=== PATIENT | female | born 2000 | race Caucasian/White ===

== ENCOUNTER 2018-05-09 21:23 | Emergency (ER) | payer OTHER ==
[2018-05-09] MEDS ORDERED: LIDOCAINE 1% 20 ML MDV ONE (21:53)
[2018-05-09] MEDS ORDERED: HYDROCODONE/APAP 5/325 MG TAB ONE (22:48)
[2018-05-09] MEDS ORDERED: BUPIVACAINE 0.5% PF 10 ML VIAL ONE (22:48)
[2018-05-09] MEDS ORDERED: LIDOCAINE 1% W/EPI 1:100,000 MDV 50 ML VIAL ONE (22:48)
[2018-05-09] MEDS ORDERED: CLINDAMYCIN 600MG/D5W 600 MG/50 ML BAG IV ONE (23:00)
[2018-05-09] MEDS ORDERED: NA CHLORIDE 0.9% 1,000 ML ONE (23:00)
[2018-05-09 23:23] LABS: Absolute Lymphocytes (CBC) 0.8 K/uL (0.7-4.9); Absolute Monocytes 1.4 K/uL (0.1-1.3); Absolute Neutrophil 13.6 K/uL (1.8-8.0); Eosinophils % 0.1 % (0-4.4); Hematocrit 37.1 % (36.0-45.0); MCH 29.1 pg (27.0-35.0); MCV 85.5 fL (80-100); MPV 9.1 fL (7.6-11.3); Monocytes % 8.9 % (3.3-12.3); RBC Red Blood Cell Count 4.34 M/uL (3.86-4.86)
[2018-05-09 23:39] LABS: Bicarbonate 24 mEq/L (21-31); Glucose Level 93 mg/dL (65-120); Potassium 3.6 mEq/L (3.6-5.0); Sodium Level 138 mEq/L (135-145)
[2018-05-09 23:40] LABS: BUN Blood Urea Nitrogen 9 mg/dL (6-20)
--- NOTE | 2018-05-09 23:57 | ER ---
Nurse's Notes [facility] Name: Xiomy Nicole Age: 17 yrs Sex: Female : 2000 Arrival Date: 05/09/2018 Time: 21:27 Bed 18 Private MD: Diagnosis: Pilonidal cyst with abscess Presentation: 05/09 21:29 Presenting complaint: Patient states: Abscess at tailbone for 3 days. Transition of care: patient was not received from another setting of care. Onset of symptoms was May 06, 2018. Risk Assessment: Do you want to hurt yourself or someone else? Patient reports no desire to harm self or others. Care prior to arrival: None. 21:29 Method Of Arrival: Ambulatory 21:29 Acuity: BENITO 3 aj 21:47 Initial Sepsis Screen: Does the patient meet any 2 criteria? No. Patient's initial tl2 sepsis screen is negative. Does the patient have a suspected source of infection? No. Patient's initial sepsis screen is negative. Triage Assessment: 21:29 General: Appears in no apparent distress. uncomfortable, Behavior is calm, cooperative, aj appropriate for age. Pain: Complains of pain in gluteal cleft. Neuro: Level of Consciousness is awake, alert, obeys commands, Oriented to person, place, time, situation, Appropriate for age. Respiratory: Airway is patent Respiratory effort is even, unlabored, Respiratory pattern is regular, symmetrical. Derm: Skin is intact, is healthy with good turgor, Skin is pink, warm \T\ dry. normal, Abscess located on gluteal cleft. 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 - Social history:: Smoking status: Patient/guardian denies using tobacco. - Ebola Screening: : Patient negative for fever greater than or equal to 101.5 degrees Fahrenheit, and additional compatible Ebola Virus Disease symptoms Patient denies exposure to infectious person Patient denies travel to an Ebola-affected area in the 21 days before illness onset No symptoms or risks identified at this time. Screenin:51 Abuse screen: Denies threats or abuse. Nutritional screening: No deficits noted. tl2 Tuberculosis screening: No symptoms or risk factors identified. Fall Risk None identified. Assessment: 21:51 General: Appears in no apparent distress. uncomfortable, Behavior is calm, cooperative, tl2 appropriate for age. General: Pt states that she made an appt to see a surgeon but the pain got too bad and she couldn't wait. Pain: Complains of pain in gluteal cleft Pain does not radiate. Neuro: Level of Consciousness is awake, alert, obeys commands, Oriented to person, place, time, situation. Cardiovascular: Denies chest pain. Respiratory: Airway is patent Respiratory effort is even, unlabored, Respiratory pattern is regular, symmetrical. GI: No signs and/or symptoms were reported involving the gastrointestinal system. : No signs and/or symptoms were reported regarding the genitourinary system. Derm: Skin is pink, warm \T\ dry. Abscess located on gluteal cleft is nickel sized, has no drainage, is hot to touch, is raised. 22:38 Reassessment: Patient appears in no apparent distress at this time. Awaiting provider tl2 assessment. 05/10 00:06 Reassessment: Patient appears in no apparent distress at this time. Patient and/or tl2 family updated on plan of care and expected duration. Pain level reassessed. Patient is alert, oriented x 3, equal unlabored respirations, skin warm/dry/pink. Pt verbalized understanding of discharge instructions, need for follow up with Dr. Luke, wound care and prescription usage Patient states feeling better. Vital Signs: 05/09 21:29 BP 131 / 82; Pulse 115; Resp 16; Temp 97.6; Pulse Ox 99% on R/A; Weight 63.05 kg; aj Height 5 ft. 5 in. (165.10 cm); 22:38 BP 116 / 68; Pulse 101; Resp 20; Pulse Ox 98% on R/A; tl2 23:24 BP 116 / 77; Pulse 97; Resp 16; Pulse Ox 99% on R/A; mt 21:29 Body Mass Index 23.13 (63.05 kg, 165.10 cm) ED Course: 21:27 Patient arrived in ED. es 21:29 Triage completed. aj 21:29 Arm band placed on right wrist. Patient placed in waiting room, Patient notified of wait time. 21:44 Bebeto Lopez PA is PHCP. cp 21:44 Alessandro Marie MD is Attending Physician. cp 21:45 Bhumika Crespo RN is Primary Nurse. tl2 21:51 Patient has correct armband on for positive identification. Placed in gown. Bed in low tl2 position. Call light in reach. Side rails up X 1. Adult w/ patient. 22:54 Inserted saline lock: 20 gauge in left antecubital area, using aseptic technique. Blood tl2 collected. placed by HARITHA Tapia. 23:52 Isaiah Luke MD is Referral Physician. 05/10 00:06 No provider procedures requiring assistance completed. IV discontinued, intact, tl2 bleeding controlled, No redness/swelling at site. Pressure dressing applied. Administered Medications: 05/09 22:52 Drug: [place] 5 mg-325 mg 1 tabs Route: PO; tl2 23:40 Follow up: Response: No adverse reaction; Pain is decreased tl2 23:04 Drug: NS 0.9% 1000 ml Route: IV; Rate: 1 bolus; Site: left antecubital; tl2 23:49 Follow up: IV Status: Completed infusion; IV Intake: 1000ml tl2 23:04 Drug: Clindamycin 600 mg Route: IVPB; Infused Over: 30 mins; Site: left antecubital; tl2 23:49 Follow up: IV Status: Completed infusion tl2 05/10 00:06 Drug: Bactrim (160 mg-800 mg (DS) 2 tablet Route: PO; tl2 00:06 Follow up: Response: No adverse reaction; Medication administered at discharge. tl2 Intake: 05/09 23:49 IV: 1000ml; Total: 1000ml. tl2 Outcome: 23:56 Discharge ordered by . 05/10 00:06 Discharged to home ambulatory, with friend. tl2 Condition: stable Discharge instructions given to patient, friend, Instructed on discharge instructions, follow up and referral plans. medication usage, wound care, Demonstrated understanding of instructions, follow-up care, medications, wound care, Prescriptions given X 3. 00:07 Patient left the ED. tl2 Signatures: Swathi Messer RN RN aj Salyer, Edna es Page, Corey, PA PA cp Bhumika Crespo RN RN tl2 Melony Fleming mt Corrections: (The following items were deleted from the chart) 05/09 21:31 21:29 Arm band placed on right wrist. Patient placed in an exam room, [facility] 22:53 22:38 Pulse 101bpm; Resp 20bpm; Pulse Ox 98% RA; tl2 tl2
--- NOTE | 2018-05-09 23:57 | EDPHYS ---
Physician Documentation [facility] Name: Xiomy Nicole Age: 17 yrs Sex: Female : 2000 Arrival Date: 05/09/2018 Time: 21:27 Bed 18 Private MD: ED Physician Alessandro Marie HPI: 05/09 22:48 This 17 yrs old Female presents to ER via Ambulatory with complaints of Boil. cp 22:48 the patient presents with a swollen area of the gluteal cleft. Description: fluctuant, cp swollen, tense. Onset: The symptoms/episode began/occurred 3 day(s) ago. Possible cause(s): unknown. Associated signs and symptoms: Pertinent negatives: discharge, drainage, fever. 22:48 Severity of symptoms: in the emergency department the symptoms are unchanged, despite home interventions. 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 - Social history:: Smoking status: Patient/guardian denies using tobacco. - Ebola Screening: : Patient negative for fever greater than or equal to 101.5 degrees Fahrenheit, and additional compatible Ebola Virus Disease symptoms Patient denies exposure to infectious person Patient denies travel to an Ebola-affected area in the 21 days before illness onset No symptoms or risks identified at this time. ROS: 22:55 Constitutional: Negative for body aches, chills, fever, poor PO intake. cp 22:55 Eyes: Negative for injury, pain, redness, and discharge. cp 22:55 ENT: Negative for drainage from ear(s), ear pain, sore throat, difficulty swallowing, difficulty handling secretions. 22:55 Cardiovascular: Negative for chest pain, palpitations. 22:55 Respiratory: Negative for cough, shortness of breath, wheezing. 22:55 Abdomen/GI: Negative for abdominal pain, nausea, vomiting, and diarrhea, black/tarry stool, rectal bleeding. 22:55 Back: Negative for pain at rest, pain with movement. 22:55 Skin: Positive for abscess, of the gluteal cleft, Negative for rash. 22:55 All other systems are negative. Exam: 23:05 Constitutional: The patient appears in no acute distress, alert, awake, cp non-diaphoretic, well developed, well nourished, uncomfortable. 23:05 Head/Face: Normocephalic, atraumatic. cp 23:05 Eyes: Periorbital structures: appear normal, Conjunctiva: normal, no exudate, no injection, Lids and lashes: appear normal, bilaterally. 23:05 ENT: External ear(s): are unremarkable, Nose: is normal, Mouth: is normal, Posterior pharynx: is normal, airway is patent. 23:05 Neck: ROM/movement: is normal, is supple, without pain, no range of motions limitations, no nuchal rigidity. 23:05 Chest/axilla: Inspection: normal. 23:05 Cardiovascular: Rate: normal, Rhythm: regular. 23:05 Respiratory: the patient does not display signs of respiratory distress, Respirations: normal, no use of accessory muscles, no retractions, no splinting, no tachypnea, Breath sounds: are clear throughout, no decreased breath sounds, no stridor, no wheezing. 23:05 Abdomen/GI: Exam negative for discomfort, distension, guarding, Inspection: abdomen appears normal. 23:05 Back: pain, is absent, ROM is normal. 23:05 Skin: abscess, that is moderate sized, of the coccyx and gluteal cleft, with induration, with surrounding cellulitis, that is mild. 23:05 Neuro: Orientation: to person, place \T\ time. Mentation: lucid, able to follow commands, Cerebellar function: is grossly normal, Motor: moves all fours, strength is normal. Vital Signs: 21:29 BP 131 / 82; Pulse 115; Resp 16; Temp 97.6; Pulse Ox 99% on R/A; Weight 63.05 kg; aj Height 5 ft. 5 in. (165.10 cm); 22:38 BP 116 / 68; Pulse 101; Resp 20; Pulse Ox 98% on R/A; tl2 23:24 BP 116 / 77; Pulse 97; Resp 16; Pulse Ox 99% on R/A; mt 21:29 Body Mass Index 23.13 (63.05 kg, 165.10 cm) Procedures: 23:36 I \T\ D: Incision and drainage was performed for an abscess of the pilonidal cyst Prepped cp with Betadine, Anesthetized with 10 ccs of 50/50 mixture 0.5% marcaine and 1% lidocaine with epi. Incised with #11 blade. Drained large amount purulent fluid. Cultures obtained. Abscess cavity explored. Packed with iodoform gauze, Dressing: sterile 4x4 gauze, the patient tolerated the procedure well. MDM: 21:44 Patient medically screened. cp 23:00 Differential diagnosis: abscess, cellulitis, insect bite. cp 23:55 Data reviewed: vital signs, nurses notes, lab test result(s), and as a result, I will cp discharge patient. 23:55 Counseling: I had a detailed discussion with the patient and/or guardian regarding: the cp historical points, exam findings, and any diagnostic results supporting the discharge/admit diagnosis, lab results, the need for outpatient follow up, a general surgeon. Response to treatment: the patient's symptoms have markedly improved after treatment, and as a result, I will discharge patient. 05/09 22:45 Order name: CBC with Diff 05/09 23:35 Interpretation: Normal except: WBC 15.8; [place]% 86.0; LYM% 5.0; NEUT A 13.6; MNA 1.4. 05/09 22:45 Order name: BMP; Complete Time: 23:51 cp 05/09 22:45 Order name: Wound Culture 05/09 22:56 Order name: Test, Serum; Complete Time: 23:51 tl2 05/09 23:26 Order name: Manual Differential EDMS 05/09 22:45 Order name: IV; Complete Time: 22:51 cp Administered Medications: 22:52 Drug: [place] 5 mg-325 mg 1 tabs Route: PO; tl2 23:40 Follow up: Response: No adverse reaction; Pain is decreased tl2 23:04 Drug: NS 0.9% 1000 ml Route: IV; Rate: 1 bolus; Site: left antecubital; tl2 23:49 Follow up: IV Status: Completed infusion; IV Intake: 1000ml tl2 23:04 Drug: Clindamycin 600 mg Route: IVPB; Infused Over: 30 mins; Site: left antecubital; tl2 23:49 Follow up: IV Status: Completed infusion tl2 05/10 00:06 Drug: Bactrim (160 mg-800 mg (DS) 2 tablet Route: PO; tl2 00:06 Follow up: Response: No adverse reaction; Medication administered at discharge. tl2 Disposition: 05/09/18 23:56 Discharged to Home. Impression: Pilonidal cyst with abscess. - Condition is Stable. - Discharge Instructions: Incision and Drainage, Pilonidal Cyst. - Prescriptions for Clindamycin HCl 300 mg Oral Capsule - take 1 capsule by ORAL route every 6 hours for 10 days; 40 capsule. Tylenol- Codeine #3 300-30 mg Oral Tablet - take 2 tablets by ORAL route every 6 hours As needed; 20 tablet. Bactrim DS 800- 160 mg Oral Tablet - take 1 tablet by ORAL route every 12 hours for 10 days; 20 tablet. - Medication Reconciliation Form, Thank You Letter, Antibiotic Education, Prescription Opioid Use form. - Work release form (05/10/18 00:10). tl2 - Follow up: Isaiah Luke MD; When: 05/12/2018; Reason: Recheck today's complaints. - Problem is new. - Symptoms have improved. Addendum: 05/12/2018 10:22 Co-signature as Attending Physician, Alessandro Marie MD I agree with the assessment and w a plan of care. Signatures: Dispatcher [employer] Swathi Olivas RN RN aj Page, Corey, PA PA cp Knox, Taylor, RN RN 2 Alessandro Marie MD MD mn Corrections: (The following items were deleted from the chart) 05/09 23:35 23:35 Normal except: WBC 15.8; [place]% 86.0; LYM% 5.0; NEUT A 13.6. cp cp 23:49 22:45 Urine Test ordered. cp tl2 05/10 00:07 05/09 23:56 05/09/2018 23:56 Discharged to Home. Impression: Pilonidal cyst with tl2 abscess. Condition is Stable. Forms are Medication Reconciliation Form, Thank You Letter, Antibiotic Education, Prescription Opioid Use. Follow up: Isaiah Luke; When: 05/12/2018; Reason: Recheck today's complaints. Problem is new. Symptoms have improved. cp
[2018-05-10] MEDS ORDERED: SMZ./TMP. 800/160 MG TABLET ONE (00:02)
[2018-05-10 00:09] LABS: Blood Morphology Comment NOT SEEN (NOT SEEN); Platelet Estimate ADEQ
== END 2018-05-10 00:07 | disposition home or self-care (01) ==
LOC: ER 21:23
PROC: 0H98XZZ Drainage of Buttock Skin, External Approach (ICD-10-PCS; principal; 2018-05-10)
DX: L05.01 Pilonidal cyst with abscess (principal)
CPT/HCPCS: 36415; 80048; 84703; 85025; 87070; 87205; 96361; 96365; 99284; J7030

== ENCOUNTER 2018-05-14 07:18 | Day surgery (SDC) | payer OTHER ==
[2018-05-13 15:48] LABS: Absolute Lymphocytes (CBC) 1.4 K/uL (0.7-4.9); Absolute Monocytes 0.4 K/uL (0.1-1.3); Absolute Neutrophil 1.7 K/uL (1.8-8.0); Basophils % 0.7 % (0-1.3); Eosinophils % 2.9 % (0-4.4); Hematocrit 39.2 % (36.0-45.0); Lymphocytes % 39.4 % (15.3-44.8); MCH 29.1 pg (27.0-35.0); MCV 86.3 fL (80-100); MPV 9.3 fL (7.6-11.3); RBC Red Blood Cell Count 4.55 M/uL (3.86-4.86)
[2018-05-13 16:01] LABS: BUN Blood Urea Nitrogen 11 mg/dL (7-18); Bicarbonate 25 mmol/L (21-32); Glucose Level 94 mg/dL (74-106); Potassium 4.1 mmol/L (3.5-5.1); Sodium Level 139 mmol/L (136-145)
[~2018-05-14 07:18] MED LIST: BUPIVACAINE 0.5% Inj,MDV 50 mL VIAL ONE
[2018-05-14] MEDS ORDERED: Ringers Lactate 1,000 ML IV ONE (07:40)
[2018-05-14] MEDS ORDERED: PROPOFOL 200 MG/20 ML VIAL IV ONE (07:40)
[2018-05-14] MEDS ORDERED: LIDOCAINE 2% MPF 5 ML VIAL ONE (07:41)
[2018-05-14] MEDS ORDERED: FENTANYL CITR 100 MCG/2 ML ONE (07:41)
[2018-05-14] MEDS ORDERED: ROCURONIUM 50 MG/5 ML VIAL IV ONE (07:41)
[2018-05-14] MEDS ORDERED: ONDANSETRON HCL 40 MG/20 ML VIAL ONE (07:41)
[2018-05-14] MEDS ORDERED: CEFAZOLIN/SWI 1gm 1 GM/10 ML SYR ONE (07:41)
[2018-05-14] MEDS ORDERED: MIDAZOLAM HCL 2 MG/2 ML INJ ONE (07:41)
[2018-05-14 07:51] LABS: Specific Gravity 1.025 (1.005-1.030)
[2018-05-14] MEDS ORDERED: GLYCOPYRROLATE 0.2 MG/ML SYR ONE (08:43)
[2018-05-14] MEDS ORDERED: NEOSTIGMINE 1 MG/ML -5 ML SYRINGE ONE (08:44)
--- NOTE | 2018-05-14 08:50 | P.BOP ---
Preoperative diagnosis: infected pilonidal cyst Postoperative diagnosis: same Primary procedure: Wide excision of infected pilonidal cyst 7 x 5 x 3 cm Estimated blood loss: <20cc Specimen: cyst Findings: as above Anesthesia: General Complications: None Drain(s): Other Transferred to: Recovery Room Condition: Good
[2018-05-14] MEDS: MEPERIDINE HCL 25 MG/0.5 ML ONE ×2 (09:10→09:12)
[2018-05-14] MEDS ORDERED: MEPERIDINE HCL 25 MG/0.5 ML ONE ×2 (09:17→09:26)
--- NOTE | 2018-05-14 18:02 | OP ---
Date of Procedure: 05/14/2018 Surgeon: Isaiah Luke MD Preoperative Diagnosis: Infected pilonidal cyst. Postoperative Diagnosis: Infected pilonidal cyst. Procedure: Wide excision of infected complex pilonidal cyst 7 x 5 x 3 cm. Estimated Blood Loss: Less than 20 cc. Specimen: Cyst with devitalized tissue. Findings: The patient has an infected cyst with associated abscess. The cyst goes all the way down to the coccyx bone, bone is not exposed. Multiple loculations present, all removed. Indications: This is the case of a lady, who comes to us with infected pilonidal cyst, initially has incision in an ER by the ER physician, but is still having purulent discharge from the area, not imp roving, so she was booked for wide excision of infected pilonidal cyst with benefits, alternatives, a nd risks including, but are not limited to infection, bleeding, damage to adjacent structures, anesth esia complication, nonhealing wound, AL, and even . She also understands this may not relieve a ny symptoms. She might need more than one surgical intervention. She understands this and will requ ashlyn wound care. The and the family member stated they will be helping with that dressing jossie nges, and they were explained how to. Procedure In Detail: The patient was brought to the operating room, placed in supine position. Anes thesia was done without complication. The patient was placed in prone position with proper protectio n. The sacral area and buttocks were prepped and draped in usual sterile fashion. The patient has i ncision in that area. We put a probe in that area, delineated the edges of the cyst, and proceed to do wide excision of it all the way down deep at least 3 cm deep into the area near the coccyx. The a bscess was completely excised to normal tissue. The area was irrigated, hemostasis was obtained, and the area was packed with wet-to-dry dressing. The patient tolerated the procedure well. The patien t was sent to recovery in stable condition. Diagnosis: Infected pilonidal cyst. Procedure: Wide excision of infected pilonidal cyst. Disposition: Home. Activity: As tolerated. No heavy lifting. Followup: Follow up in my office in 1 week. Call for appointment at [phone]. Wet-to-dry dressing. Normal saline daily. The family were explained how to do so. Medications: Include Vicodin q.4 hours p.r.n. pain. The patient advised not to combine that with ot her codeine or opioids. MACHELLE/ARASELI Voice ID: [id number] Report ID: [id number]
== END 2018-05-14 10:25 | disposition home or self-care (01) ==
LOC: OR 07:18
PROVIDERS: ATTEND Surgery
PROC: 0JB90ZZ Excision of Buttock Subcutaneous Tissue and Fascia, Open Approach (ICD-10-PCS; principal; 2018-05-14 08:15)
DX: L05.01 Pilonidal cyst with abscess (principal)
CPT/HCPCS: 36415; 80048; 81025; 84703; 85025; 88304; J0690; J2175; J2250; J2405; J2710; J3010

== ENCOUNTER 2019-11-19 17:20 | Emergency (ER) | payer OTHER ==
[2019-11-19 18:32] LABS: Urine Blood NEGATIVE (NEG); Urine Glucose NEGATIVE (NEG); Urine Protein 1+ (NEG); Urine pH 7.5 (5.0-7.0)
[2019-11-19 19:28] LABS: Urine Bacteria 20-50 /HPF (<20); Urine Culture Reflex Order REFLEXED; Urine Mucus 1+ /HPF (NONE SEEN); Urine RBC <5 /HPF (NONE SEEN)
--- NOTE | 2019-11-19 19:31 | ER ---
Nurse's Notes [facility] Name: Xiomy Nicole Age: 19 yrs Sex: Female : 2000 Arrival Date: 11/19/2019 Time: 17:22 Bed 30 Private MD: Diagnosis: Urinary tract infection, site not specified Presentation: 11/19 18:01 Presenting complaint: Patient states: bladder feels full, urine frequency, pain with iw urination, X 10 days. Transition of care: patient was not received from another setting of care. Onset of symptoms was November 08, 2019. Risk Assessment: Do you want to hurt yourself or someone else? Patient reports no desire to harm self or others. Initial Sepsis Screen: Does the patient meet any 2 criteria? No. Patient's initial sepsis screen is negative. Does the patient have a suspected source of infection? No. Patient's initial sepsis screen is negative. Care prior to arrival: None. 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 - Social history:: Smoking status: Patient/guardian denies using tobacco. - Ebola Screening: : Patient negative for fever greater than or equal to 101.5 degrees Fahrenheit, and additional compatible Ebola Virus Disease symptoms Patient denies exposure to infectious person Patient denies travel to an Ebola-affected area in the 21 days before illness onset No symptoms or risks identified at this time. Screenin:30 Abuse screen: Denies threats or abuse. Nutritional screening: No deficits noted. rb1 Tuberculosis screening: No symptoms or risk factors identified. Fall Risk None identified. Assessment: 18:30 General: Appears in no apparent distress. comfortable, Behavior is calm, cooperative, rb1 Denies fever. Pain: Complains of pain in suprapubic area Pain currently is 7 out of 10 on a pain scale. Quality of pain is described as burning. Neuro: Level of Consciousness is awake, alert, obeys commands, Oriented to person, place, time, situation. Cardiovascular: Capillary refill < 3 seconds is brisk in bilateral fingers. Respiratory: Airway is patent Respiratory effort is even, unlabored, Respiratory pattern is regular, symmetrical. GI: No signs and/or symptoms were reported involving the gastrointestinal system. : Reports burning with urination, urinary frequency, bladder feels full. Denies blood in the urine. Derm: Skin is pink, warm \T\ dry. 19:18 Reassessment: Assumed care of pt. Pt sitting upright, no distress noted at this time. sr5 AA\T\Ox4, equal unlabored resp, skin warm/dry/nc, awaiting umicro results. Updated on POC. Vital Signs: 18:02 BP 131 / 90; Pulse 86; Resp 16; Temp 98.3; Pulse Ox 100% on R/A; Weight 67.13 kg; iw Height 5 ft. 5 in. (165.10 cm); Pain 6/10; 18:33 BP 131 / 77; Pulse 93; Resp 18; Pulse Ox 99% on R/A; Pain 5/10; jp3 19:18 BP 124 / 67; Pulse 79; Resp 16; Temp 98.3; Pulse Ox 100% on R/A; Pain 0/10; sr5 18:02 Body Mass Index 24.63 (67.13 kg, 165.10 cm) iw ED Course: 17:22 Patient arrived in ED. rg4 18:01 Triage completed. iw 18:02 Arm band placed on. iw 18:15 Urine collected: clean catch specimen, clear, cindy colored. jp3 18:16 Gogo Garduno FNP-C [facility]. kb 18:16 Corey Mitchell MD is Attending Physician. kb 18:33 Anju Gill, HARITHA is Primary Nurse. rb1 18:34 Bed in low position. Call light in reach. Side rails up X 1. Warm blanket given. Verbal jp3 reassurance given. Pulse ox on. NIBP on. 18:34 Patient maintains SpO2 saturation greater than 95% on room air. jp3 19:16 Urine Microscopic Only Sent. jp3 19:48 No provider procedures requiring assistance completed. Patient did not have IV access sr5 during this emergency room visit. Administered Medications: 19:36 Drug: Pyridium 200 mg Route: PO; sr5 19:48 Follow up: Response: No adverse reaction sr5 19:37 Drug: Macrobid 100 mg Route: PO; sr5 19:48 Follow up: Response: No adverse reaction sr5 Outcome: 19:30 Discharge ordered by MD. bentley 19:48 Patient left the ED. sr5 19:48 Discharged to home ambulatory, with family. sr5 19:48 Condition: good 19:48 Discharge instructions given to patient, Instructed on discharge instructions, follow up and referral plans. medication usage, Demonstrated understanding of instructions, follow-up care, medications, Prescriptions given X 2. Addendum: 11/22/2019 07:58 Addendum: Culture Results: Positive urine culture. No further action required. Bacteria e b sensitive to prescribed antibiotic. Signatures: Gogo Garduno, PAINTING WORKER-C PAINTING WORKER-Ckb Anusah Estrada, RN RN iw Anju Gill, HARITHA RN rb1 Anton Casillas RN RN sr5 Amrita Quesada4 Darlin Meza Jacob jp3
--- NOTE | 2019-11-19 19:32 | EDPHYS ---
Physician Documentation [facility] Name: Xiomy Nicole Age: 19 yrs Sex: Female : 2000 Arrival Date: 11/19/2019 Time: 17:22 Bed 30 Private MD: ED Physician Corey Mitchell HPI: 11/19 19:14 This 19 yrs old Female presents to ER via Ambulatory with complaints of kb Urinary Problem. 19:15 The patient presents with urinary symptoms, dysuria, frequency. Onset: The kb symptoms/episode began/occurred 10 day(s) ago. Modifying factors: The symptoms are alleviated by nothing, the symptoms are aggravated by urinating. Associated signs and symptoms: Pertinent positives: dysuria, urinary frequency. Severity of symptoms: At their worst the symptoms were moderate, in the emergency department the symptoms are unchanged. The patient has not experienced similar symptoms in the past. The patient has not recently seen a physician. Pt reports burning with urination, frequency, small amounts for 10 days. 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 - Social history:: Smoking status: Patient/guardian denies using tobacco. - Ebola Screening: : Patient negative for fever greater than or equal to 101.5 degrees Fahrenheit, and additional compatible Ebola Virus Disease symptoms Patient denies exposure to infectious person Patient denies travel to an Ebola-affected area in the 21 days before illness onset No symptoms or risks identified at this time. ROS: 19:13 Constitutional: Negative for fever, chills, and weight loss, Cardiovascular: Negative kb for chest pain, palpitations, and edema, Respiratory: Negative for shortness of breath, cough, wheezing, and pleuritic chest pain, Abdomen/GI: Negative for abdominal pain, nausea, vomiting, diarrhea, and constipation, Back: Negative for injury and pain, MS/Extremity: Negative for injury and deformity, Skin: Negative for injury, rash, and discoloration, Neuro: Negative for headache, weakness, numbness, tingling, and seizure. 19:13 : Positive for urinary symptoms, urinary frequency, small amounts, burning with urination. Exam: 19:13 Constitutional: This is a well developed, well nourished patient who is awake, alert, kb and in no acute distress. Head/Face: Normocephalic, atraumatic. Chest/axilla: Normal chest wall appearance and motion. Nontender with no deformity. No lesions are appreciated. Cardiovascular: Regular rate and rhythm with a normal S1 and S2. No gallops, murmurs, or rubs. Normal PMI, no JVD. No pulse deficits. Respiratory: Lungs have equal breath sounds bilaterally, clear to auscultation and percussion. No rales, rhonchi or wheezes noted. No increased work of breathing, no retractions or nasal flaring. Back: No spinal tenderness. No costovertebral tenderness. Full range of motion. Skin: Warm, dry with normal turgor. Normal color with no rashes, no lesions, and no evidence of cellulitis. MS/ Extremity: Pulses equal, no cyanosis. Neurovascular intact. Full, normal range of motion. Neuro: Awake and alert, GCS 15, oriented to person, place, time, and situation. Cranial nerves II-XII grossly intact. Motor strength 5/5 in all extremities. Sensory grossly intact. Cerebellar exam normal. Normal gait. 19:13 Abdomen/GI: Inspection: abdomen appears normal, Bowel sounds: normal, in all quadrants, Palpation: soft, in all quadrants, mild abdominal tenderness, in the suprapubic area. Vital Signs: 18:02 BP 131 / 90; Pulse 86; Resp 16; Temp 98.3; Pulse Ox 100% on R/A; Weight 67.13 kg; iw Height 5 ft. 5 in. (165.10 cm); Pain 6/10; 18:33 BP 131 / 77; Pulse 93; Resp 18; Pulse Ox 99% on R/A; Pain 5/10; jp3 19:18 BP 124 / 67; Pulse 79; Resp 16; Temp 98.3; Pulse Ox 100% on R/A; Pain 0/10; sr5 18:02 Body Mass Index 24.63 (67.13 kg, 165.10 cm) iw MDM: 18:29 Patient medically screened. kb 19:12 Data reviewed: vital signs, nurses notes. Data interpreted: Pulse oximetry: on room air kb is 99 %. Interpretation: normal. 19:29 Counseling: I had a detailed discussion with the patient and/or guardian regarding: the kb historical points, exam findings, and any diagnostic results supporting the discharge/admit diagnosis, lab results, the need for outpatient follow up, a family practitioner, to return to the emergency department if symptoms worsen or persist or if there are any questions or concerns that arise at home. 11/19 18:19 Order name: Urine Dipstick--Ancillary (enter results); Complete Time: 18:43 iw 11/19 18:20 Order name: Urine --Ancillary (enter results); Complete Time: 18:43 iw 11/19 18:43 Order name: Urine Microscopic Only; Complete Time: 19:29 kb 11/19 19:29 Order name: Urine Culture [facility] 11/19 18:19 Order name: Urine Dipstick-Ancillary (obtain specimen); Complete Time: 18:19 iw Administered Medications: 19:36 Drug: Pyridium 200 mg Route: PO; sr5 19:48 Follow up: Response: No adverse reaction sr5 19:37 Drug: Macrobid 100 mg Route: PO; sr5 19:48 Follow up: Response: No adverse reaction sr5 Disposition: 11/20 05:56 Co-signature as Attending Physician, Corey Mitchell MD I agree with the assessment and rn plan of care. 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 Disposition: 11/19/19 19:30 Discharged to Home. Impression: Urinary tract infection, site not specified. - Condition is Stable. - Discharge Instructions: Urinary Tract Infection, Adult, [id number]. - Prescriptions for Pyridium 200 mg Oral Tablet - take 1 tablet by ORAL route every 8 hours for 3 days; 9 tablet. Macrobid 100 mg Oral Capsule - take 1 capsule by ORAL route every 12 hours for 10 days; 20 capsule. - Medication Reconciliation Form, Thank You Letter, Antibiotic Education, Prescription Opioid Use, Work release form form. - Follow up: Emergency Department; When: As needed; Reason: Worsening of condition. Follow up: Private Physician; When: 2 - 3 days; Reason: Recheck today's complaints, Continuance of care, Re-evaluation by your physician. Signatures: Dispatcher [employer] [facility] Gogo Garduno FNP-C FNP-Ckb Williams, Anusha, RN RN Corey Reyes MD MD rn Resecker, Sam, RN RN sr5 Corrections: (The following items were deleted from the chart) 11/19 19:48 19:30 11/19/2019 19:30 Discharged to Home. Impression: Urinary tract infection, site sr5 not specified. Condition is Stable. Forms are Medication Reconciliation Form, Thank You Letter, Antibiotic Education, Prescription Opioid Use. Follow up: Emergency Department; When: As needed; Reason: Worsening of condition. Follow up: Private Physician; When: 2 - 3 days; Reason: Recheck today's complaints, Continuance of care, Re-evaluation by your physician. kb
[2019-11-19] MEDS ORDERED: NITROFURAN MACRO 100 MG CAP PO ONE (19:37)
[2019-11-19] MEDS ORDERED: PHENAZOPYRIDINE 100MG TAB PO ONE (19:37)
[2019-11-19 21:25] VITALS: TEMP 98.3
[2019-11-19 21:29] VITALS: BP 124/67; O2SAT 100
== END 2019-11-19 19:48 | disposition home or self-care (01) ==
LOC: ER 17:20
DX: N39.0 Urinary tract infection, site not specified (principal)
CPT/HCPCS: 81003; 81015; 81025; 87077; 87086; 87088; 87186; 99284

== ENCOUNTER 2021-03-24 07:04 | Day surgery (SDC) | payer OTHER ==
[2021-03-24 07:21] LABS: Specific Gravity >= 1.030 (1.005-1.030)
[2021-03-24] MEDS: Ringers Lactate 1,000 ML IV ONE ×2 (07:30→08:07)
[2021-03-24] MEDS ORDERED: MIDAZOLAM HCL 2 MG/2 ML INJ ONE (08:12)
[2021-03-24] MEDS ORDERED: GLYCOPYRROLATE 0.2 MG/ML SYR ONE ×2 (08:12→08:13)
[2021-03-24] MEDS ORDERED: propofoL 200 MG/20 ML VIAL IV ONE (08:12)
[2021-03-24] MEDS ORDERED: LIDOCAINE 2% MPF 5 ML VIAL ONE (08:13)
[2021-03-24] MEDS ORDERED: ROCURONIUM 50 MG/5 ML VIAL IV ONE (08:14)
[2021-03-24] MEDS ORDERED: ONDANSETRON 4 MG/2 ML VIAL ONE ×2 (08:14→09:04)
[2021-03-24] MEDS ORDERED: FENTANYL CITR 250 MCG/5 ML ONE ×2 (08:14→09:03)
[2021-03-24] MEDS ORDERED: FENTANYL CITR 100 MCG/2 ML ONE (08:15)
[2021-03-24] MEDS ORDERED: OFLOXACIN OPH 0.3%-5 ML BTL ONE (08:20)
[2021-03-24] MEDS ORDERED: LIDOCAINE 1% W/EPI 1:100,000 MDV 20 ML VIAL ONE (08:20)
--- NOTE | 2021-03-24 08:33 | P.OP ---
Training Developer: None Pre-Op Diagnosis: Conductive hearing loss, Atrophic flaccid tympanic membrane with retraction, Other (oral vestibular lesion, suspicious for fibroma) Post-Op Diagnosis: Same Procedure: Right myringotomy and tympanostomy tube placement, Other (Biopsy oral vestibule) Anesthesia: Other (General via LMA) Fluids/ Blood products: Other (crystalloid 400ml) Estimated blood loss: Other (<5ml) Specimen: Other (left buccal mucosal lesion) Complications: None Implants: Tiny T tympanostomy tube Indication: Patient with recurrent acute otitis media and persistent middle ear fluid in spite of good medical management. Details of Operation: The patient was brought to the operating room and placed under general anesthesia via inhalation mask. The right ear was visualized under the operating microscope. A speculum aided visualization. Cerumen was removed from the canal using a wire curette. The central tympanic membrane was retracted to the promontory and there was shallow retraction of the pars flaccida. A myringotomy incision was made in the anterior-inferior quadrant and no fluid was aspirated from the middle ear space. A pick was used to gentle tease the tympanic membrane which was not adhered to the promontory. A Tiny T tympanostomy tube was positioned across the incision using the alligator and pick. Ofloxacin ophthalmic drops were instilled and a cotton ball placed at the meatus. Attention was turned to the mouth with a 3-4mm firm pink round mass of the left anterior oral/buccal mucosa. The lesion is grasped with forceps and excised with a 15 blade. Pressure and silver nitrate is applied for hemostasis and 2 interrupted 4-0 chromic sutures used to close the defect. Disposition: The patient was then awakened from anesthesia and taken to the recovery room in stable condition.
[2021-03-24] MEDS ORDERED: dexAMETHasone 10 MG/ML VIAL ONE (08:39)
[2021-03-24] MEDS ORDERED: SILVER NITRATE 1 APPL TOP ONE (08:40)
[2021-03-24] MEDS ORDERED: MEPERIDINE HCL 25 MG/ML SYR ONE (09:10)
[2021-03-24 09:22] VITALS: O2SAT 98
[2021-03-24 09:40] VITALS: BP 119/67; TEMP 98.7
[2021-03-24] MEDS ORDERED: IBUPROFEN 400 MG TAB ONE (10:19)
== END 2021-03-24 10:30 | disposition home or self-care (01) ==
LOC: OR 07:04
PROVIDERS: ATTEND Otolaryngology
PROC: 0WB30ZZ Excision of Oral Cavity and Throat, Open Approach (ICD-10-PCS; 2021-03-24)
PROC: 099570Z Drainage of Right Middle Ear with Drainage Device, Via Natural or Artificial Opening (ICD-10-PCS; principal; 2021-03-24 07:45)
DX: H73.811 Atrophic flaccid tympanic membrane, right ear (principal); H90.2 Conductive hearing loss, unspecified; D10.39 Benign neoplasm of other parts of mouth; Z20.822 Contact with and (suspected) exposure to COVID-19
CPT/HCPCS: 81025; 88305; 69436; 40812; U0003; J2704; J3010 ×2; J1100; J2175; J7120; J2405 ×2; J2250

== ENCOUNTER 2021-03-26 23:48 | Emergency (ER) | payer OTHER ==
[2021-03-27 01:49] LABS: Absolute Lymphocytes (CBC) 3.9 K/uL (0.7-4.9); Basophils % 0.7 % (0-1.3); Hematocrit 42.6 % (36.0-45.0); MPV 8.9 fL (7.6-11.3); RBC Red Blood Cell Count 4.89 M/uL (3.86-4.86)
[2021-03-27 01:50] LABS: Protime INR 1.03
[2021-03-27 02:03] LABS: ALT/SGPT 49 U/L (12-78); AST/SGOT 21 U/L (15-37); Albumin 4.1 g/dL (3.4-5.0); Alkaline Phosphatase 83 U/L (45-117); BUN Blood Urea Nitrogen 10 mg/dL (7-18); Bicarbonate 26 mmol/L (21-32); Bilirubin Direct 0.1 mg/dL (0-0.2); Bilirubin Total 0.3 mg/dL (0.2-1.0); Glucose Level 81 mg/dL (74-106); Magnesium 2.2 mg/dL (1.8-2.4); NT PRO-BNP 52 pg/mL (<125); Protein, Total 8.2 g/dL (6.4-8.2); Sodium Level 138 mmol/L (136-145); Troponin (Emerg Dept Use Only) < 0.02 ng/mL (0.0-0.045)
[2021-03-27] MEDS ORDERED: ONDANSETRON 4 MG/2 ML VIAL ONE (02:19)
[2021-03-27] MEDS ORDERED: MORPHINE 4 MG/ML SYR ONE (02:19)
[2021-03-27 02:35] LABS: Blood Morphology Comment NOT SEEN (NOT SEEN); Platelet Estimate ADEQ; White Blood Cell Scan OK (OK)
--- NOTE | 2021-03-27 03:51 | EDPHYS ---
Physician Documentation [facility] Name: Xiomy Nicole Age: 20 yrs Sex: Female : 2000 Arrival Date: 03/26/2021 Time: 23:52 Bed 3 Private MD: ED Physician John Knott HPI: 03/27 01:39 This 20 yrs old Female presents to ER via Ambulatory with complaints of Back mh7 Pain, Post Surgical Pain. 01:39 The patient presents with pain that is acute, with no known mechanism of injury. The mh7 symptoms are located in the right scapular area. 01:40 Onset: The symptoms/episode began/occurred yesterday. The pain does not radiate. mh7 Associated signs and symptoms: Pertinent positives: Pertinent negatives: abdominal pain, chest pain, constipation, dysuria, fever, headache, hematuria, incontinence, nausea, numbness, tingling, urinary retention, vomiting, weakness. The problem was sustained from unknown cause, had oral and ear surgery 3 days ago . Modifying factors: The patient symptoms are alleviated by nothing, the patient symptoms are aggravated by movement, deep breaths. Severity of symptoms: At their worst the symptoms were moderate, yesterday, in the emergency department the symptoms are unchanged. 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 - Social history:: Smoking status: Patient denies any tobacco usage or history of. ROS: 01:40 Constitutional: Negative for fever, chills, and weight loss, Eyes: Negative for injury, mh7 pain, redness, and discharge, ENT: Negative for injury, pain, and discharge, Neck: Negative for injury, pain, and swelling, Cardiovascular: Negative for chest pain, palpitations, and edema, Abdomen/GI: Negative for abdominal pain, nausea, vomiting, diarrhea, and constipation, Back: Negative for injury and pain, : Negative for injury, bleeding, discharge, and swelling, Skin: Negative for injury, rash, and discoloration, Neuro: Negative for headache, weakness, numbness, tingling, and seizure, Psych: Negative for depression, anxiety, suicide ideation, homicidal ideation, and hallucinations, Allergy/Immunology: Negative for hives, rash, and allergies, Endocrine: Negative for neck swelling, polydipsia, polyuria, polyphagia, and marked weight changes, Hematologic/Lymphatic: Negative for swollen nodes, abnormal bleeding, and unusual bruising. Exam: 01:40 Head/Face: Normocephalic, atraumatic. mh7 01:40 Constitutional: The patient appears in no acute distress, alert, awake, uncomfortable. 02:02 Eyes: Pupils equal round and reactive to light, extra-ocular motions intact. Lids and mh7 lashes normal. Conjunctiva and sclera are non-icteric and not injected. Cornea within normal limits. Periorbital areas with no swelling, redness, or edema. Neck: Trachea midline, no thyromegaly or masses palpated, and no cervical lymphadenopathy. Supple, full range of motion without nuchal rigidity, or vertebral point tenderness. No Meningismus. 02:02 Cardiovascular: Regular rate and rhythm with a normal S1 and S2. No gallops, murmurs, or rubs. Normal PMI, no JVD. No pulse deficits. Respiratory: Lungs have equal breath sounds bilaterally, clear to auscultation and percussion. No rales, rhonchi or wheezes noted. No increased work of breathing, no retractions or nasal flaring. Abdomen/GI: Soft, non-tender, with normal bowel sounds. No distension or tympany. No guarding or rebound. No evidence of tenderness throughout. 02:02 Skin: Warm, dry with normal turgor. Normal color with no rashes, no lesions, and no evidence of cellulitis. MS/ Extremity: Pulses equal, no cyanosis. Neurovascular intact. Full, normal range of motion. Neuro: Awake and alert, GCS 15, oriented to person, place, time, and situation. Cranial nerves II-XII grossly intact. Motor strength 5/5 in all extremities. Sensory grossly intact. Cerebellar exam normal. Normal gait. Psych: Awake, alert, with orientation to person, place and time. Behavior, mood, and affect are within normal limits. 02:02 Chest/axilla: Inspection: normal, Palpation: tenderness, that is moderate, of the right lateral posterior chest, that totally reproduces the patient's complaints, Axilla: are normal, Lymph nodes: lymphadenopathy is not appreciated. 02:02 Back: pain, that is moderate, of the right scapular area, ROM is normal, normal spinal alignment noted, CVA tenderness, is absent. Vital Signs: 00:44 BP 133 / 75; Pulse 85; Resp 16; Temp 98.2; Pulse Ox 100% ; rv 02:18 BP 126 / 80; Pulse 80; Resp 18; Pulse Ox 100% on R/A; ea 04:00 BP 122 / 78; Pulse 78; Resp 18; Pulse Ox 99% ; ea MDM: 03:48 Differential diagnosis: chronic back pain, pulmonary embolus, musculoskeletal pain. [facility] Data reviewed: vital signs, nurses notes, lab test result(s), cardiac enzymes, CBC, electrolytes, urinalysis, UPT: negative radiologic studies, CT scan, plain films. Data interpreted: Pulse oximetry: on room air is 100 %. Interpretation: normal. Counseling: I had a detailed discussion with the patient and/or guardian regarding: the historical points, exam findings, and any diagnostic results supporting the discharge/admit diagnosis, lab results, radiology results, the need for outpatient follow up, to return to the emergency department if symptoms worsen or persist or if there are any questions or concerns that arise at home. Response to treatment: the patient's symptoms have resolved after treatment, the patient's blood pressure is in an acceptable range, mental status has returned to baseline, the patient no longer shows bradycardia, the patient is not short of breath, the patient is not tachycardic, the patient's pain is gone, the patient's temperature has normalized. 03:51 Patient medically screened. [facility] 03/27 01:02 Order name: Basic Metabolic Panel [facility] 03/27 01:02 Order name: CBC with Diff; Complete Time: 03:45 [facility] 03/27 01:02 Order name: LFT's; Complete Time: 02:14 [facility] 03/27 01:02 Order name: Magnesium; Complete Time: 02:14 [facility] 03/27 01:02 Order name: NT PRO-BNP; Complete Time: 02:14 [facility] 03/27 01:02 Order name: PT-INR; Complete Time: 02:14 [facility] 03/27 01:02 Order name: Troponin (emerg Dept Use Only); Complete Time: 02:14 [facility] 03/27 01:02 Order name: XRAY Chest (1 view) [facility] 03/27 01:02 Order name: EKG; Complete Time: 01:04 [facility] 03/27 01:03 Order name: Basic Metabolic Panel; Complete Time: 02:14 [facility] 03/27 01:59 Order name: CBC Smear Scan; Complete Time: 03:45 [facility] 03/27 02:15 Order name: CT Chest For PE Angio [facility] 03/27 01:02 Order name: Cardiac monitoring; Complete Time: 02:18 [facility] 03/27 01:02 Order name: EKG - Nurse/Tech; Complete Time: 02:18 [facility] 03/27 01:02 Order name: IV Saline Lock; Complete Time: 02:04 [facility] 03/27 01:02 Order name: Labs collected and sent; Complete Time: 02:04 [facility] 03/27 01:02 Order name: O2 Per Protocol; Complete Time: 02:04 [facility] 03/27 01:02 Order name: O2 Sat Monitoring; Complete Time: 02:04 [facility] Administered Medications: 02:03 Drug: Zofran (Ondansetron) 4 mg Route: IVP; Site: left antecubital; rv 04:00 Follow up: Response: No adverse reaction ea 02:04 Drug: morphine 4 mg Route: IVP; Site: left antecubital; rv 04:00 Follow up: Response: No adverse reaction ea Disposition: 03/27/21 03:51 Discharged to Home. Impression: Back Pain, Right Upper, Musculoskeletal Pain. - Condition is Stable. - Discharge Instructions: Musculoskeletal Pain, Back Pain, Adult, [id number]. - Prescriptions for Ibuprofen 800 mg Oral Tablet - take 1 tablet by ORAL route every 8 hours As needed take with food; 15 tablet. Robaxin 500 mg Oral Tablet - take 1 tablet by ORAL route every 6 hours As needed; 20 tablet. - Work release form, Family Work Release, Medication Reconciliation Form, Thank You Letter, Antibiotic Education, Prescription Opioid Use form. - Follow up: Private Physician; When: 1 - 2 days; Reason: Worsening of condition, Recheck today's complaints, Continuance of care, Re-evaluation by your physician. - Problem is new. - Symptoms have improved. Signatures: Dispatcher [employer] [facility] Anusha Estrada RN Lupis Deng RN Nixon Albarado ea, RN RN rv Holmes, Maurice, MD MD mh7 Corrections: (The following items were deleted from the chart) 04:09 03:51 03/27/2021 03:51 Discharged to Home. Impression: Back Pain, Right Upper; ea Musculoskeletal Pain. Condition is Stable. Forms are Medication Reconciliation Form, Thank You Letter, Antibiotic Education, Prescription Opioid Use. Follow up: Private Physician; When: 1 - 2 days; Reason: Worsening of condition, Recheck today's complaints, Continuance of care, Re-evaluation by your physician. Problem is new. Symptoms have improved. mh7
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
[2021-03-27 04:15] VITALS: TEMP 98.2
[2021-03-27 04:17] VITALS: BP 122/78; O2SAT 99
--- NOTE | 2021-03-27 08:30 | RAD REPORT ---
EXAM DESCRIPTION: RAD - Chest Single View - 03/27/2021 3:40 am CLINICAL HISTORY: DYSPNEA Chest pain. COMPARISON: No comparisons FINDINGS: Portable technique limits examination quality. The lungs are grossly clear. The heart is normal in size. No displaced fractures. IMPRESSION: No acute intrathoracic process suspected.
--- NOTE | 2021-03-27 09:18 | EKG ---
Test Date: 2021-03-27 Test Time: 01:19:44 Algorithm Developer: LINDA MEASUREMENT RESULTS: Intervals: Rate: 78 [place]: 140 QRSD: 84 QT: 390 QTc: 444 [place]: P: 11 [place]: 140 QRS: 70 T: 22 INTERPRETIVE STATEMENTS: Normal sinus rhythm Normal ECG No previous ECG available for comparison Electronically Signed On 03-27-21 09:17:06 CDT by Karlos Jones
--- NOTE | 2021-03-27 16:02 | RAD REPORT ---
EXAM DESCRIPTION: Chest For Pe Angio 03/27/2021 3:09 AM CDT CLINICAL HISTORY: 20 years, Female, DYSPNEA COMPARISON: None CLINICAL HISTORY: Multiple transaxial tomograms of the chest were obtained from the lung apices thro ugh the lung bases utilizing 2 mm slice thickness at 2 mm interval reconstruction after the administr ation of large bolus IV contrast for complete opacification of the pulmonary arteries. Subsequent maximum intensity projection images were generated in the coronal and sagittal plane for r eview. An individualized dose optimization technique, Automated Exposure Control, was utilized for the perfo rmed procedure. FINDINGS: The lungs parenchyma demonstrate to be within normal limits. Motion artifact limits evalua tion. No masses, nodules and/or consolidations are identified. The trachea mainstem bronchus demons trate to be normal. There is no significant pericardial or pleural effusions. The thoracic aorta demonstrate to be unremarkable. There is no evidence for thoracic aortic dissectio n is/or aneurysm. The heart is normal in size. No evidence for right ventricular strain. There are no coronary artery calcifications. There is no significant mediastinal and/or hilar lymphadenopathy. The axillary regions demonstrate to be clear. Pulmonary arteries demonstrate to be normal, no intraluminal defect are seen that would suggest pulmo nary embolus. The bone windows demonstrate no significant skeletal lesions. The visualized portions of the upper abdomen demonstrate to unremarkable. IMPRESSION: No evidence for pulmonary embolism and/or thoracic aortic dissection. And a marker CT scan of the chest with contrast. Electronically signed by: Nitin Acosta MD 03/27/2021 3:12 AM CDT Due to temporary technical issues with the PACS/Fluency reporting system, reports are being signed by the in house radiologists without review as a courtesy to insure prompt reporting. The interpreting radiologist is fully responsible for the content of the report.
== END 2021-03-27 04:09 | disposition home or self-care (01) ==
LOC: ER 23:48
DX: M79.18 Myalgia, other site (principal)
CPT/HCPCS: 93005; 85025; 80048; 36415; 83735; 85610; 80076; 84484; 83880; 71275; 71045; Q9967; J2405; 96374; 96375; 99283